=== PATIENT | female | born 1930 | race Two or more races ===

== ENCOUNTER → 2020-03-31 | Emergency (ER) | payer OTHER ==
[~2020-03-31] VITALS: Ht 154.9 cm; Wt 72.6 kg
== END | disposition left against medical advice (07) ==
LOC: ER 06:27 → EDBD 06:40
DX: L02.413 Cutaneous abscess of right upper limb (principal); B95.61 Methicillin susceptible Staphylococcus aureus infection as the cause of diseases classified elsewhere; Z03.818 Encounter for observation for suspected exposure to other biological agents ruled out

== ENCOUNTER 2021-04-18 11:36 | Emergency (ER) | payer OTHER ==
[~2021-04-18] VITALS: Ht 160 cm; Wt 72.6 kg
== END 2021-04-18 18:08 | disposition home or self-care (01) ==
LOC: ER 11:36
DX: M54.50 Low back pain, unspecified (principal); N63.20 Unspecified lump in the left breast, unspecified quadrant; B95.61 Methicillin susceptible Staphylococcus aureus infection as the cause of diseases classified elsewhere; B96.5 Pseudomonas (aeruginosa) (mallei) (pseudomallei) as the cause of diseases classified elsewhere; B96.89 Other specified bacterial agents as the cause of diseases classified elsewhere

== ENCOUNTER 2021-05-17 13:58 | Emergency (ER) | payer OTHER ==
[~2021-05-17] VITALS: Ht 165.1 cm; Wt 59.0 kg
== END 2021-05-17 15:16 | disposition home or self-care (01) ==
LOC: ER 13:58
DX: C50.912 Malignant neoplasm of unspecified site of left female breast (principal)

== ENCOUNTER 2021-05-21 16:26 | Inpatient (IN) | payer OTHER ==
[~2021-05-21] VITALS: Ht 162.6 cm; Wt 72.6 kg
[2021-05-24] MEDS ORDERED: TRAMADOL HCL50 MG PO (15:53)
[2021-05-24] MEDS ORDERED: RESTORIL15 MG PO (15:53)
[2021-05-24] MEDS ORDERED: Ferro-Plex CAPLET PO (15:54)
[2021-05-24] MEDS ORDERED: CIPRO500 MG PO (15:54)
== END 2021-05-24 16:58 | disposition home or self-care (01) | DRG 598 ==
LOC: MEDI 16:26
PROVIDERS: ADMIT Internal Medicine Hematology & Oncology; ATTEND Internal Medicine Hematology & Oncology
PROC: 30233N1 Transfusion of Nonautologous Red Blood Cells into Peripheral Vein, Percutaneous Approach (ICD-10-PCS; 2021-05-21)
PROC: BW2410Z Computerized Tomography (CT Scan) of Chest and Abdomen using Low Osmolar Contrast, Unenhanced and Enhanced (ICD-10-PCS; 2021-05-21)
PROC: 0HB5XZX Excision of Chest Skin, External Approach, Diagnostic (ICD-10-PCS; principal; 2021-05-23)
DX: C50.812 Malignant neoplasm of overlapping sites of left female breast (principal); L03.313 Cellulitis of chest wall; E44.0 Moderate protein-calorie malnutrition; Z68.41 Body mass index [BMI] 40.0-44.9, adult; J44.1 Chronic obstructive pulmonary disease with (acute) exacerbation; E66.09 Other obesity due to excess calories; D50.0 Iron deficiency anemia secondary to blood loss (chronic); B96.89 Other specified bacterial agents as the cause of diseases classified elsewhere

== ENCOUNTER 2021-09-05 02:24 | Inpatient (IN) | payer OTHER ==
[~2021-09-05] VITALS: Ht 165.1 cm; Wt 54.4 kg
[~2021-09-05 02:24] MED LIST: CIPRO500 MG PO; Ferro-Plex CAPLET PO; RESTORIL15 MG PO; TRAMADOL HCL50 MG PO
--- NOTE | 2021-09-05 02:41 | NUR ---
SE RECIBE PTE FEMENINA ALERTA Y ORIENTADA EN LAS SENA ESFERAS EN AMBULANCIA EN COMPANIA DE FAMILIAR REFIERE TRAUMA EN CADERA L+ POR CAIDA DE LA CAMA EN LA MADRUGADA DE DANILO. SE UBICA EN AREA DE OBSERVACION PARA EVALUACION MEDICA.
--- NOTE | 2021-09-05 03:51 | NUR ---
SE NOTIFCAN RX PENDIENTES A REALIZAR.
--- NOTE | 2021-09-05 08:36 | NUR ---
PTE EVALUADA POR EL KRISS BOTELLO ORDENA TRATAMIENTO DE IVF'S Y ANGELINA DE MUESTRA. PTE CONSULTADA CON EL DENNYS BOTELLO LA CUAL SE MANTIENE NOTIFICAO POR EL KRISS BOTELLO . SE MANTIENE BAJO OBSERVACION POR CAMBIOS.
--- NOTE | 2021-09-05 16:11 | NUR ---
SE EXTRAEN MUESTRAS BAJO MEDIDAS ASEPTICAS INCLUYENDO TUBOS PILOTOS PARA 2 UNIDADES DE PRBC FRACC NOTIFICADAS A MS KEBEDE DE BANCO DE EVA DE AUXILIO M[place] POR MS MENDOZA.FAMILIAR FIRMA PERMISO DE TRANSFUSION.
== END 2021-09-17 18:17 | disposition home or self-care (01) | DRG 482 ==
LOC: ER 02:24 → MEDJ 18:03 → MEDI 18:03 → SURH 18:03 → MEDJ 20:43 → SURH 09-12 11:41
PROVIDERS: Orthopaedic Surgery; ADMIT Internal Medicine; ATTEND Internal Medicine
PROC: BR2CZZZ Computerized Tomography (CT Scan) of Pelvis (ICD-10-PCS; 2021-09-05)
PROC: BR20ZZZ Computerized Tomography (CT Scan) of Cervical Spine (ICD-10-PCS; 2021-09-05)
PROC: BW28ZZZ Computerized Tomography (CT Scan) of Head (ICD-10-PCS; 2021-09-05)
PROC: 30233N1 Transfusion of Nonautologous Red Blood Cells into Peripheral Vein, Percutaneous Approach (ICD-10-PCS; 2021-09-10)
PROC: 0QS736Z Reposition Left Upper Femur with Intramedullary Internal Fixation Device, Percutaneous Approach (ICD-10-PCS; principal; 2021-09-12 07:00)
DX: S72.142A Displaced intertrochanteric fracture of left femur, initial encounter for closed fracture (principal); D63.0 Anemia in neoplastic disease; C50.812 Malignant neoplasm of overlapping sites of left female breast; I10 Essential (primary) hypertension; Z20.822 Contact with and (suspected) exposure to COVID-19; F03.90 Unspecified dementia, unspecified severity, without behavioral disturbance, psychotic disturbance, mood disturbance, and anxiety